=== PATIENT | female | born 1975 | race Caucasian/White ===

== ENCOUNTER → 2016-10-19 | Outpatient (CLI) | payer OTHER | LOC: KOH-I 11:12 | DX: R07.9 Chest pain, unspecified (principal); R06.02 Shortness of breath | CPT/HCPCS: 71020 ==

== ENCOUNTER → 2016-10-25 | Outpatient (CLI) | payer OTHER | LOC: HEART 5 08:59 | DX: R07.9 Chest pain, unspecified (principal) | CPT/HCPCS: 78452; A9502 ==

== ENCOUNTER → 2016-12-10 | Outpatient (CLI) | payer OTHER | LOC: EMI 08:00 | DX: R42 Dizziness and giddiness (principal) | CPT/HCPCS: 70551 ==

== ENCOUNTER 2021-01-15 08:17 | Emergency (ER) | payer OTHER ==
[2021-01-15 09:13] LABS: HEMOGLOBIN 12.8 gm/dl (12.3-15.3); RED BLOOD COUNT 4.43 M/UL (4.00-5.10); WHITE BLOOD COUNT 5.6 K/UL (4.5-11.0)
[2021-01-15 09:36] LABS: BUN/CREATININE RATIO 18 (0-10)
[2021-01-15] MEDS ORDERED: BENTYL 20MG TAB20 MG PO (10:07)
[2021-01-15] MEDS ORDERED: ZOFRAN4 MG PO (10:07)
== END 2021-01-15 10:19 | disposition home or self-care (01) ==
LOC: ER1 08:17
PROVIDERS: Physician Assistant
DX: R10.11 Right upper quadrant pain (principal); R19.7 Diarrhea, unspecified; Z79.899 Other long term (current) drug therapy
CPT/HCPCS: 80053; 81001; 83690; 84703; 85025; 96374; 99284; J2405

== ENCOUNTER → 2022-04-08 | Outpatient (CLI) | payer OTHER ==
[~2022-04-08] MED LIST: BENTYL 20MG TAB20 MG PO; ZOFRAN4 MG PO
== END ==
LOC: EXRD 07:46
DX: R10.11 Right upper quadrant pain (principal); K76.89 Other specified diseases of liver
CPT/HCPCS: 76700